=== PATIENT | male | born 1995 | race Caucasian/White ===

== ENCOUNTER 2017-06-22 08:57 | Emergency (ER) | payer OTHER ==
--- NOTE | 2017-06-22 08:59 | PDOC ---
History of Present Illness - General Chief Complaint: Injury Stated Complaint: LEFT WRIST INJURY Time Seen by Provider: 06/22/17 08:59 History Source: Patient Exam Limitations: No Limitations - History of Present Illness Timing/Duration: 1 hour Severity: mild Modifying Factors: improves with: cold therapy Associated Symptoms: denies: denies symptoms Past History - Travel Traveled outside of the country in the last 30 days: No Close contact w/someone who was outside of country & ill: No - Past Medical History Allergies/Adverse Reactions: Allergies Allergy/AdvReac Type Severity Reaction Status Date / Time Penicillins Allergy Intermediate Rash Verified 06/22/17 08:59 Home Medications: Ambulatory Orders Ibuprofen 800 mg PO TID #30 tablet 06/22/17 - Immunization History Immunization Up to Date: Yes - Psycho/Social/Smoking Cessation Hx Anxiety: No Suicidal Ideation: No Smoking Status: No Smoking History: Never smoked Have you smoked in the past 12 months: No Number of Cigarettes Smoked Daily: 0 Hx Alcohol Use: Yes (4 TIME A WEEK) Drug/Substance Use Hx: No Substance Use Type: Alcohol Review of Systems - Review of Systems Able to Perform ROS?: Yes Is the patient limited Serbian proficient: No Constitutional: No: Symptoms Reported HEENTM: No: Symptoms Reported, Dental Problems Cardiac (ROS): No: Symptoms Reported ABD/GI: No: Symptoms Reported : No: Symptoms Reported Musculoskeletal: Yes: See HPI Integumentary: No: Symptoms Reported Neurological: No: Symptoms reported Psychiatric: No: Anxiety, Depression Hematologic/Lymphatic: No: Symptoms Reported All Other Systems: Reviewed and Negative *Physical Exam - Physical Exam Comments: 06/22/17 09:36 Isolated injury, fell forward landed on outstretched hand, complained of pain to distal radius. No deformity or STS. No Crepetance, No abnormal Motion, No Ligamentous laxity, No Snuff Box tenderness and no pain with axial loading of the thumb. General Appearance: Yes: Nourished, Appropriately Dressed HEENT: positive: EOMI, BECKY, Normal ENT Inspection, Normal Voice Neck: positive: Tender, Trachea midline, Normal Thyroid Respiratory/Chest: positive: Chest Tender, Lungs Clear, Normal Breath Sounds Cardiovascular: positive: Regular Rhythm, Regular Rate, S1, S2 Gastrointestinal/Abdominal: positive: Normal Bowel Sounds, Flat, Soft Extremity: positive: Normal Capillary Refill, Normal Inspection, Normal Range of Motion, Other (See Above). negative: Swelling Neurologic: positive: Other (limb neurovascularly intact) *DC/Admit/Observation/Transfer Diagnosis at time of Disposition: Sprain and strain Contusion Qualifiers: Encounter type: initial encounter Contusion area: wrist - Discharge Dispostion Disposition: HOME Condition at time of disposition: Improved Admit: No - Prescriptions Prescriptions: Ibuprofen 800 mg PO TID #30 tablet - Referrals Referrals: Bossman Boyce MD [Staff Physician] - - Patient Instructions Printed Discharge Instructions: DI for Contusion, DI for Wrist Sprain Additional Instructions: Use the wrap and sling for comfort. Motrin three times a day with food. Ice for the first 48 hour on and off for comfort and to prevent swelling. Follow up with Orthopedics and return to us if any problems - Post Discharge Activity Work/School Note: Back to Work
[2017-06-22 09:15] VITALS: BP 125/81; PULSE 82; TEMP 98.9; BMI 23.7
[2017-06-22] MEDS ORDERED: IBUPROFEN 400 MG TABLET (FP) PO ONE ×2 (09:32→09:35)
--- NOTE | 2017-06-22 09:52 | PDOC ---
History of Present Illness - General Chief Complaint: Injury Stated Complaint: LEFT WRIST INJURY Time Seen by Provider: 06/22/17 08:59 Past History - Past Medical History Allergies/Adverse Reactions: Allergies Allergy/AdvReac Type Severity Reaction Status Date / Time Penicillins Allergy Intermediate Rash Verified 06/22/17 08:59 Other medical history: DENIES - Immunization History Immunization Up to Date: Yes - Psycho/Social/Smoking Cessation Hx Anxiety: No Suicidal Ideation: No Smoking Status: No Smoking History: Never smoked Have you smoked in the past 12 months: No Number of Cigarettes Smoked Daily: 0 Information on smoking cessation initiated: No Hx Alcohol Use: Yes (4 TIME A WEEK) Drug/Substance Use Hx: No Substance Use Type: Alcohol Review of Systems - Review of Systems Is the patient limited Persian proficient: No *Physical Exam - Vital Signs Last Vital Signs Temp Pulse Resp BP Pulse Ox 98.9 F 82 16 125/81 100 06/22/17 08:58 06/22/17 08:58 06/22/17 08:58 06/22/17 08:58 06/22/17 08:58 ED Treatment Course - Medications Given in the ED: ED Medications Discontinued Medications Generic Name Dose Route Start Last Admin Trade Name Freq PRN Reason Stop Dose Admin Ibuprofen 800 mg 06/22/17 09:32 06/22/17 09:36 Motrin - PO 06/22/17 09:33 800 mg ONCE ONE Administration *DC/Admit/Observation/Transfer - Discharge Dispostion Condition at time of disposition: Stable - Post Discharge Activity Work/School Note: Back to Work
== END 2017-06-22 10:13 | disposition home or self-care (01) ==
LOC: FER 08:57
DX: S63.502A Unspecified sprain of left wrist, initial encounter (principal); S66.912A Strain of unspecified muscle, fascia and tendon at wrist and hand level, left hand, initial encounter; W18.39XA Other fall on same level, initial encounter; Y93.89 Activity, other specified; Y92.9 Unspecified place or not applicable
CPT/HCPCS: 73110-TC-LT; 73130-TC-LT; 99283-25

== ENCOUNTER 2018-09-28 21:48 | Emergency (ER) | payer BC, OTHER ==
[2018-09-28 21:57] VITALS: BP 130/80; PULSE 94; BMI 25.1
[2018-09-28] MEDS ORDERED: IBUPROFEN 600 MG TABLET (FP) PO ONE ×2 (22:17→22:18)
--- NOTE | 2018-09-28 22:17 | PDOC ---
History of Present Illness - General History Source: Patient Exam Limitations: No Limitations - History of Present Illness Initial Comments: 09/28/18 22:34 The patient is a 23 year old here today for evaluation of a fever. The patient reports that he has had a fever of 104 for the past two days. He notes associated painful cough productive of yellow sputum, chest and low back pain, and headache. He reports being in contact with people who had bronchitis. PAST MEDICAL HISTORY: no significant history PAST SURGICAL HISTORY: no significant history FAMILY HISTORY: no pertinent history SOCIAL HISTORY: Pt lives with family and is employed. MEDICATIONS: reviewed ALLERGIES: As per nursing notes General: +Fever. No chills, no weakness, no weight loss HEENT: +Headache. No change in vision. No sore throat,. No ear pain CardioVascular: +Chest pain. No shortness of breath Respiratory: +Cough. No wheezing. Gastrointestinal: no nausea, vomiting, diarrhea or constipation, No rectal bleeding Genitourinary: No dysuria, hematuria, or frequency Musculoskeletal: +Lower back pain. Neurologic: No headache, vertigo, dizziness or loss of consciousness Psychiatric: nor depression Skin: No rashes or easy bruising Endocrine: no increased thirst or abnormal weight change Allergic: no skin or latex allergy All other systems reviewed and normal General: +Appeared uncomfortable. Well-nourished well-developed individual HEENT: Throat: +Mild erythema posterior oropharynx no lymphadenopathy Neck: Supple, no meningeal signs, no lymphadenopathy Eyes::Pupils equal reactive and round, extraocular motion intact Chest: Nontender to palpation Cardiac: S1-S2 normal, regular rate and rhythm, no murmurs rubs or gallops Respiratory: Lungs clear to auscultation bilateral Abdomen: Soft, nondistended, normal bowel sounds, nontender to palpation diffusely Extremities: Warm, dry, no cyanosis, clubbing, or edema Skin: No rashes Neuro: Alert and oriented x3, nonfocal exam, grossly intact, normal gait Psych: Normal mood and affect <MemoAnkur green - Last Filed: 09/28/18 22:34> - General History Source: Patient Exam Limitations: No Limitations - History of Present Illness Initial Comments: A portion of this note was documented by scribe services under my direction. I have reviewed the details of the note, within reason, and agree with the documentation with the following case summary and management plan written by me. Patient treated in the ED. Nursing notes are reviewed and incorporated into the medical decision-making. Vital signs reviewed. Assessment and plan: This is a 23-year-old male who comes in complaining of fever, body aches, headaches. Cough with yellow phlegm and congestion Patient did not get his flu shot. Workup initiated including influenza screen and chest x-ray. 09/28/18 23:43 X-ray probable retrocardiac infiltrate Patient started on Zithromax and will follow up with his primary care doctor first dose given in the ED <Lila Benitez I - Last Filed: 09/28/18 23:46> - General Chief Complaint: Cold Symptoms Stated Complaint: FEVER/HEADACHE Time Seen by Provider: 09/28/18 21:51 Past History <Ankur Hampton - Last Filed: 09/28/18 22:34> - Past Medical History COPD: No - Immunization History Immunization Up to Date: Yes - Suicide/Smoking/Psychosocial Hx Smoking Status: No Smoking History: Never smoked Have you smoked in the past 12 months: No Number of Cigarettes Smoked Daily: 0 Hx Alcohol Use: Yes (4 TIME A WEEK) Drug/Substance Use Hx: No Substance Use Type: Alcohol <Lila Benitez I - Last Filed: 09/28/18 23:46> - Past Medical History Allergies/Adverse Reactions: Allergies Allergy/AdvReac Type Severity Reaction Status Date / Time Penicillins Allergy Intermediate Rash Verified 06/22/17 08:59 Home Medications: Ambulatory Orders Azithromycin 250 mg PO DAILY #4 tablet 09/28/18 *Physical Exam - Vital Signs Last Vital Signs Temp Pulse Resp BP Pulse Ox 102.9 F H 94 H 18 130/80 99 09/28/18 21:51 09/28/18 21:51 09/28/18 21:51 09/28/18 21:51 09/28/18 21:51 <Ankur Hampton - Last Filed: 09/28/18 22:34> - Vital Signs Last Vital Signs Temp Pulse Resp BP Pulse Ox 102.9 F H 94 H 18 130/80 99 09/28/18 21:51 09/28/18 21:51 09/28/18 21:51 09/28/18 21:51 09/28/18 21:51 <Lila Benitez I - Last Filed: 09/28/18 23:46> Moderate Sedation - Procedure Monitoring Vital Signs: Procedure Monitoring Vital Signs Temperature 102.9 F H 09/28/18 21:51 Pulse Rate 94 H 09/28/18 21:51 Respiratory Rate 18 09/28/18 21:51 Blood Pressure 130/80 09/28/18 21:51 O2 Sat by Pulse Oximetry (%) 99 09/28/18 21:51 <Ankur Hampton - Last Filed: 09/28/18 22:34> - Procedure Monitoring Vital Signs: Procedure Monitoring Vital Signs Temperature 102.9 F H 09/28/18 21:51 Pulse Rate 94 H 09/28/18 21:51 Respiratory Rate 18 09/28/18 21:51 Blood Pressure 130/80 09/28/18 21:51 O2 Sat by Pulse Oximetry (%) 99 09/28/18 21:51 <Lila Benitez I - Last Filed: 09/28/18 23:46> ED Treatment Course - Medications Given in the ED: ED Medications Discontinued Medications Generic Name Dose Route Start Last Admin Trade Name Freq PRN Reason Stop Dose Admin Ibuprofen 600 mg 09/28/18 22:17 09/28/18 22:19 Motrin - PO 09/28/18 22:18 600 mg ONCE ONE Administration <Ankur Hampton - Last Filed: 09/28/18 22:34> *DC/Admit/Observation/Transfer - Attestations Scribe Attestion: 09/28/18 22:35 Documentation prepared by EVE Howell, acting as hospitalist medical director for Lila Benitez MD. <Ankur Hampton - Last Filed: 09/28/18 22:34> - Discharge Dispostion Decision to Admit order: No <iLla Benitez I - Last Filed: 09/28/18 23:46> Diagnosis at time of Disposition: Pneumonia Qualifiers: Pneumonia type: due to unspecified organism Laterality: left Lung location: lower lobe of lung Qualified Code(s): J18.1 - Lobar pneumonia, unspecified organism - Discharge Dispostion Disposition: HOME Condition at time of disposition: Stable - Prescriptions Prescriptions: Azithromycin 250 mg PO DAILY #4 tablet - Referrals Referrals: Juan Spring [Primary Care Provider] - - Patient Instructions Additional Instructions: Get the prescription filled for the azithromycin and take one tablet a day for the next 4 days. Your given a first dose here in the emergency department so need to take her next dose tomorrow evening. For the fevers alternate Tylenol with Motrin every 3-4 hours as needed. Return to the emergency department immediately with ANY new, persistent or worsening symptoms. Continue any medications as previously prescribed by your physician. You should follow up with your primary doctor as soon as possible regarding today's emergency department visit. . Please make sure your doctor reviews the results of your emergency evaluation. Thank you for coming to the Emergency Department today for your care. It was a pleasure to see you today. Please note that your evaluation is INCOMPLETE until you follow-up with your doctor. - Post Discharge Activity
[2018-09-28 23:41] VITALS: TEMP 100.7
[2018-09-28] MEDS ORDERED: AZITHROMYCIN 500 MG TABLET PO ONE (23:42)
[2018-09-28] MEDS ORDERED: AZITHROMYCIN 500 MG TABLET ONE (23:50)
== END 2018-09-28 23:52 | disposition home or self-care (01) ==
LOC: FER 21:48
DX: J18.1 Lobar pneumonia, unspecified organism (principal)
CPT/HCPCS: 71046-TC-FY; 87804; 99281-25

== ENCOUNTER 2019-05-26 20:39 | Emergency (ER) | payer BC, OTHER ==
[2019-05-26 20:53] VITALS: BMI 25.7
[2019-05-26] MEDS ORDERED: SODIUM CHLORIDE 1,000 ML IV ONE (21:15)
[2019-05-26] MEDS ORDERED: KETOROLAC TROMETHAMINE 30 MG/1 ML VIAL IVPUSH ONE (21:15)
[2019-05-26] MEDS ORDERED: KETOROLAC TROMETHAMINE 30 MG/1 ML VIAL ONE (21:33)
--- NOTE | 2019-05-26 21:34 | PDOC ---
Documentation entered by Kandi Vaughn SCRIBE, acting as scribe for Lila Benitez MD. Lila Benitez MD: This documentation has been prepared by the Roderick esteban Andrys, SCRIBE, under my direction and personally reviewed by me in its entirety. I confirm that the documentation accurately reflects all work, treatment, procedures, and medical decision making performed by me. History of Present Illness - General Chief Complaint: Pain Stated Complaint: HEADACHE, FEVER AT HOME, SORE THROAT Time Seen by Provider: 05/26/19 20:49 History Source: Patient Exam Limitations: No Limitations - History of Present Illness Initial Comments: 05/26/19 21:14 The patient is a 24 year old male with no significant past medical history who presents to the ED with several days of headache and fever. Patient states he recently traveled to [place] and was outdoors a lot. He reports a sharp heachache and subjective fever that started 3 days ago. He developed a sore throat and body aches 2 days ago. Patient reports pain to the back of his neck with radiation to his head and back pain. He took tylenol with no relief of symptoms. Denies rashes. Denies nausea or vomiting. Denies cough or congestion. PAST MEDICAL HISTORY: no significant history PAST SURGICAL HISTORY: no significant history FAMILY HISTORY: no pertinent history SOCIAL HISTORY: Pt lives with family and is employed. MEDICATIONS: reviewed ALLERGIES: As per nursing notes General: + fever, body aches. No weakness, no weight loss HEENT: + sore throat. No change in vision. No ear pain Cardiovascular: No chest pain or shortness of breath Respiratory:No cough, or wheezing. Gastrointestinal: no nausea, vomiting, diarrhea or constipation, No rectal bleeding Genitourinary: No dysuria, hematuria, or frequency Musculoskeletal: + neck pain. No joint or muscle swelling Neurologic: + headache. No vertigo, dizziness or loss of consciousness Psychiatric: nor depression Skin: No rashes or easy bruising Endocrine: no increased thirst or abnormal weight change Allergic: no skin or latex allergy All other systems reviewed and normal General: + mild distress. Well-nourished well-developed individual. HEENT: Throat: Normal, tonsils normal, no erythema or exudate Neck: Supple, no meningeal signs, no lymphadenopathy Eyes::Pupils equal reactive and round, extraocular motion intact Chest: Nontender to palpation Cardiac: S1-S2 normal, regular rate and rhythm, no murmurs rubs or gallops Respiratory: Lungs clear to auscultation bilateral Abdomen: Soft, nondistended, normal bowel sounds, nontender to palpation diffusely Extremities: Warm, dry, no cyanosis, clubbing, or edema Skin: No rashes Neuro: Alert and oriented x3, nonfocal exam, grossly intact, normal gait Psych: Normal mood and affect 05/26/19 21:33 Assessment and plan: This is a 24-year-old male who comes in complaining of 3 days of fever bodyaches headache. Patient recently returned from [place] where he spent a lot of time outdoors he said. Patient was unaware of any tick bites. Patient on my exam had no meningeal signs but did appear uncomfortable. Patient given IV fluids, Toradol. Workup initiated to rule out tickborne illnesses including leukemia, babesiosis , Lyme and general labs were sent including CBC, comp and blood cultures. 05/26/19 22:33 Patient's workup was unremarkable with the exception of a monocytosis on his CBC. A mono screen was sent to rule out infectious mono Patient feels better after Toradol IV fluids. We'll start patient on doxycycline for presumptive tickborne illness as he has risk factors and symptoms consistent with a tickborne illness. Patient given first dose of doxycycline here. Patient told to follow-up with his primary care doctor who can follow-up the results of his test for babesiosis and ehrlichiosis as well as Lyme Past History - Past Medical History Allergies/Adverse Reactions: Allergies Allergy/AdvReac Type Severity Reaction Status Date / Time No Known Allergies Allergy Verified 05/26/19 20:45 Home Medications: Ambulatory Orders Acetaminophen [Tylenol -] 650 mg PO ONCE 05/26/19 Doxycycline Hyclate 100 mg PO BID #20 tablet 05/26/19 COPD: No - Immunization History Immunization Up to Date: Yes - Suicide/Smoking/Psychosocial Hx Smoking Status: No Smoking History: Current some day smoker Have you smoked in the past 12 months: Yes Number of Cigarettes Smoked Daily: 0 Information on smoking cessation initiated: Yes Hx Alcohol Use: (social) Drug/Substance Use Hx: No Substance Use Type: Alcohol *Physical Exam - Vital Signs Last Vital Signs Temp Pulse Resp BP Pulse Ox 100 F H 95 H 18 120/73 100 05/26/19 20:39 05/26/19 20:39 05/26/19 20:39 05/26/19 20:39 05/26/19 20:39 ED Treatment Course - LABORATORY CBC & Chemistry Diagram: 05/26/19 21:30 05/26/19 21:30 *DC/Admit/Observation/Transfer Diagnosis at time of Disposition: Fever Qualifiers: Fever type: unspecified Qualified Code(s): R50.9 - Fever, unspecified - Discharge Dispostion Disposition: HOME Condition at time of disposition: Stable Decision to Admit order: No - Prescriptions Prescriptions: Doxycycline Hyclate 100 mg PO BID #20 tablet - Referrals - Patient Instructions Additional Instructions: Take doxycycline 1 tablet twice a day for 10 days/ For the fever or body aches and headaches alternate Tylenol 2 extra strength with ibuprofen 3 tablets every 4-6 hours as needed. Return to the emergency department immediately with ANY new, persistent or worsening symptoms. Continue any medications as previously prescribed by your physician. You should follow up with your primary doctor as soon as possible regarding today's emergency department visit. . Please make sure your doctor reviews the results of your emergency evaluation. Thank you for coming to the Emergency Department today for your care. It was a pleasure to see you today. Please note that your evaluation is INCOMPLETE until you follow-up with your doctor. - Post Discharge Activity
[2019-05-26 21:58] LABS: BASO % 0.1 % (0-2.0); EOS % 0.6 % (0-4.5); HEMATOCRIT 41.2 % (35.4-49); HEMOGLOBIN 13.9 GM/dl (11.7-16.9); LYMPH % 11.7 % (8-40); MCH 30.6 pg (25.7-33.7); MCHC 33.8 g/dl (32.0-35.9); MEAN CELL VOLUME 90.5 fl (80-96); MEAN PLT VOLUME 10.4 fl (7.5-11.1); MONO % 15.6 % (3.8-10.2); PLATELET COUNT 146 K/MM3 (134-434); RBC 4.55 M/mm3 (4.00-5.60); RDW 12.7 % (11.9-15.9); WHITE BLOOD COUNT 4.6 K/mm3 (4.0-10.8)
[2019-05-26 22:13] LABS: ALBUMIN 4.3 g/dl (3.4-5.0); BILIRUBIN,TOTAL 1.2 mg/dl (0.2-1); CALCIUM 9.4 mg/dl (8.5-10)
[2019-05-26] MEDS ORDERED: DOXYCYCLINE HYCLATE 100 MG CAPSULE PO ONE ×2 (22:30→22:40)
[2019-05-26 23:02] VITALS: BP 112/70; PULSE 81; TEMP 98.8
[2019-05-29 14:18] LABS: E.chaff HME IgG Negative (Neg:<1:64)
[2019-05-29 16:23] LABS: BABESIA MICROTI ANTIBODY IGG <1:10 (Neg:<1:10); BABESIA MICROTI ANTIBODY IGM <1:10 (Neg:<1:10)
== END 2019-05-26 23:07 | disposition home or self-care (01) ==
LOC: FER 20:39
PROC: 3E0333Z Introduction of Anti-inflammatory into Peripheral Vein, Percutaneous Approach (ICD-10-PCS; principal; 2019-05-26)
PROC: 3E0337Z Introduction of Electrolytic and Water Balance Substance into Peripheral Vein, Percutaneous Approach (ICD-10-PCS; 2019-05-26)
DX: F17.210 Nicotine dependence, cigarettes, uncomplicated (principal)
CPT/HCPCS: 36415; 80053; 85025; 86308; 86618; 86666; 86753; 87040; 99284-25; J7030

== ENCOUNTER 2019-05-27 13:31 | Emergency (ER) | payer BC, OTHER ==
--- NOTE | 2019-05-27 13:41 | PDOC ---
Rapid Medical Evaluation Medical Evaluation: Allergies Allergy/AdvReac Type Severity Reaction Status Date / Time No Known Allergies Allergy Verified 05/26/19 20:45 I have performed a brief in-person evaluation of this patient. The patient presents with a chief complaint of: c/o fever, headache, sore throat , body aches since 4 days ago; Tmax 103; was seen at [facility] yesterday and had labs/blood cultures done; was started on doxy for possible lyme's; denies recent travel; returns today as states [place] getting worse; has hx of meningitis; took Tylenol 2 hrs ago Pertinent physical exam findings: In NAD; throat clear, no neck stiffness noted I have ordered the following: Motrin Of note, patient states Ozzie is aware and may come in to see patient The patient will proceed to the ED for further evaluation. 05/27/19 13:39
[2019-05-27] MEDS ORDERED: IBUPROFEN 600 MG TABLET (FP) PO ONE ×3 (13:43→14:17)
[2019-05-27 13:44] VITALS: BP 136/50; PULSE 94; TEMP 99.5; BMI 25.7
[2019-05-27] MEDS ORDERED: DEXAMETHASONE LIQUID 0.5 MG/5 ML 240 ML BULK BOTTLE PO ONE (16:44)
[2019-05-27] MEDS ORDERED: ACETAMINOPHEN 500 MG TABLET (FP) PO ONE (16:44)
[2019-05-27] MEDS ORDERED: AMOXICILLIN 500 MG CAPSULE (FP) PO ONE (16:45)
[2019-05-27] MEDS ORDERED: AMOXICILLIN 500 MG CAPSULE (FP) ONE (16:52)
[2019-05-27] MEDS ORDERED: ACETAMINOPHEN 325 MG TABLET (FP) ONE (16:52)
[2019-05-27] MEDS ORDERED: DEXAMETHASONE SOD PHOSPHATE 10 MG/1 ML VIAL ONE (16:52)
--- NOTE | 2019-05-27 17:39 | PDOC ---
History of Present Illness - General Chief Complaint: Respiratory Stated Complaint: Cold Symptoms Time Seen by Provider: 05/27/19 13:38 History Source: Patient Exam Limitations: No Limitations - History of Present Illness Initial Comments: 05/27/19 17:05 24 y/o male with no past medical history presents to ED with 3 days of frontal throbbing headache, fever, chills, myalgia and sore throat. Patient states was seen at [facility] emergency department. Patient was tested for Lyme, mono and given doxycycline secondary to recent discharged from the [employer] 3 weeks ago. Patient denies seeing an insect bite/insect but states the frontal headache and chills or continuing despite taking doxycycline for the past day. Patient states took no Motrin or Tylenol for headache. Timing/Duration: constant Severity: moderate Associated Symptoms: reports: fever/chills, headaches, other (sore throat) Past History - Travel Traveled outside of the country in the last 30 days: No Close contact w/someone who was outside of country & ill: No - Past Medical History Allergies/Adverse Reactions: Allergies Allergy/AdvReac Type Severity Reaction Status Date / Time No Known Allergies Allergy Verified 05/27/19 13:40 Home Medications: Ambulatory Orders Acetaminophen [Tylenol -] 650 mg PO ONCE 05/26/19 Doxycycline Hyclate 100 mg PO BID #20 tablet 05/26/19 Amoxicillin - [Amoxicillin 500mg Capsule -] 500 mg PO BID #19 capsule 05/27/19 Ibuprofen [Motrin -] 600 mg PO TID PRN #21 tablet 05/27/19 COPD: No - Immunization History Immunization Up to Date: Yes - Suicide/Smoking/Psychosocial Hx Smoking Status: No Smoking History: Never smoked Have you smoked in the past 12 months: Yes Number of Cigarettes Smoked Daily: 0 Hx Alcohol Use: No Drug/Substance Use Hx: No Substance Use Type: Alcohol Patient Lives Alone: No Lives with/in: parents Review of Systems - Review of Systems Able to Perform ROS?: Yes Constitutional: Yes: Chills, Fever HEENTM: Yes: Throat Pain, Difficulty Swallowing Respiratory: No: Symptoms reported Cardiac (ROS): No: Symptoms Reported ABD/GI: No: Symptoms Reported : No: Symptoms Reported Musculoskeletal: Yes: Joint Pain, Muscle Pain Integumentary: No: Symptoms Reported Neurological: Yes: Headache Endocrine: No: Symptoms Reported Hematologic/Lymphatic: No: Symptoms Reported *Physical Exam - Vital Signs Last Vital Signs Temp Pulse Resp BP Pulse Ox 99.5 F 94 H 16 136/50 L 99 05/27/19 13:35 05/27/19 13:35 05/27/19 13:35 05/27/19 13:35 05/27/19 13:35 - Physical Exam General Appearance: Yes: Nourished, Appropriately Dressed. No: Apparent Distress HEENT: positive: Tonsillar Erythema (with exudate to left 2+ tonsil). negative : Pale Conjunctivae Neck: positive: Normal Thyroid. negative: Lymphadenopathy (R), Lymphadenopathy (L) Respiratory/Chest: positive: Lungs Clear, Normal Breath Sounds. negative: Respiratory Distress, Accessory Muscle Use Cardiovascular: positive: Regular Rhythm, Regular Rate. negative: Murmur Gastrointestinal/Abdominal: negative: Soft, Tenderness Integumentary: positive: Normal Color, Warm, Moist Neurologic: positive: Motor Strength 5/5 (ambulatory) ED Treatment Course - Medications Given in the ED: ED Medications Discontinued Medications Generic Name Dose Route Start Last Admin Trade Name Timbo PRN Reason Stop Dose Admin Acetaminophen 975 mg 05/27/19 16:44 05/27/19 16:57 Tylenol - PO 05/27/19 16:45 975 mg ONCE ONE Administration Amoxicillin 500 mg 05/27/19 16:45 05/27/19 16:57 Amoxicillin - PO 05/27/19 16:46 500 mg ONCE ONE Administration Dexamethasone 10 mg 05/27/19 16:44 05/27/19 16:56 Decadron Liquid - PO 05/27/19 16:45 10 mg ONCE ONE Administration Ibuprofen 600 mg 05/27/19 13:43 05/27/19 14:35 Motrin - PO 05/27/19 13:44 600 mg ONCE ONE Administration Medical Decision Making - Medical Decision Making 05/27/19 17:00 Frontal throbbing headache along with sore throat and chills/myalgia patient has been placed on doxycycline since yesterday while his titers are pending due to his line of work presently with [employer] along with recent discharge from the [employer] 3 weeks ago exam: low grade temp of 99.5 orally noted exudate and erythema to the left 2+ tonsil plan: Tylenol, Decadron and amoxicillin started along with rapid strep. if negative will treat for tonsillitis based on clinical presentation and complaints 05/27/19 17:43 Laboratory Tests 05/27/19 16:45 Group A Strep Rapid Negative 05/27/19 17:49 Pt states mod resolution of headache and sore throat. pt will be prescribed amoxicillin and Motrin. pt also told to call the ED tomorrow for update *DC/Admit/Observation/Transfer Diagnosis at time of Disposition: Tonsillitis - Discharge Dispostion Disposition: HOME Condition at time of disposition: Improved - Prescriptions Prescriptions: Amoxicillin - [Amoxicillin 500mg Capsule -] 500 mg PO BID #19 capsule Ibuprofen [Motrin -] 600 mg PO TID PRN #21 tablet PRN Reason: Pain - Referrals - Patient Instructions Printed Discharge Instructions: DI for Pharyngitis/Tonsillopharyngitis -- Adult Additional Instructions: Please take Amoxicillin for tonsillitis. Please take Motrin for headache. Drink electrolyte based fluids and call me tomorrow at [phone]. - Post Discharge Activity Forms/Work/School Notes: Back to Work
== END 2019-05-27 17:55 | disposition home or self-care (01) ==
LOC: JER 13:31
DX: J03.90 Acute tonsillitis, unspecified (principal)
CPT/HCPCS: 87070; 87077; 87880; 99281-25

== ENCOUNTER 2020-09-22 05:59 | Emergency (ER) | payer BC ==
[2020-09-22 06:06] VITALS: BP 141/96; PULSE 79; TEMP 98; BMI 25.7
[2020-09-22] MEDS ORDERED: KETOROLAC TROMETHAMINE 60 MG/2 ML VIAL IM ONE (06:16)
[2020-09-22] MEDS ORDERED: AMOXICILLIN 500 MG CAPSULE (FP) PO ONE (06:16)
[2020-09-22] MEDS ORDERED: AMOXICILLIN 250 MG CAPSULE ONE (06:16)
[2020-09-22] MEDS ORDERED: KETOROLAC TROMETHAMINE 60 MG/2 ML VIAL ONE (06:17)
== END 2020-09-22 06:27 | disposition home or self-care (01) ==
LOC: FER 05:59
PROC: 3E0233Z Introduction of Anti-inflammatory into Muscle, Percutaneous Approach (ICD-10-PCS; principal; 2020-09-22)
DX: K01.1 Impacted teeth (principal)
CPT/HCPCS: 99284-25

== ENCOUNTER 2023-01-20 11:00 | Emergency (ER) | payer BC, OTHER ==
[2023-01-20 11:14] VITALS: BP 127/84; PULSE 84; RESP 15; TEMP 98; BMI 25.8
[2023-01-20] MEDS ORDERED: NAPROXEN 500 MG TABLET PO ONE (11:23)
[2023-01-20] MEDS ORDERED: NAPROXEN 500 MG TABLET ONE (11:38)
== END 2023-01-20 11:45 | disposition home or self-care (01) ==
LOC: FER 11:00
DX: K64.9 Unspecified hemorrhoids (principal)
CPT/HCPCS: 99283-25

== ENCOUNTER 2023-04-10 18:14 | Emergency (ER) | payer BC ==
[2023-04-10 18:23] VITALS: BP 125/87; PULSE 84; RESP 20; TEMP 98.2; BMI 23.6
[2023-04-10] MEDS ORDERED: DEXAMETHASONE SOD PHOSPHATE 10 MG/1 ML VIAL PO ONE (18:26)
[2023-04-10] MEDS ORDERED: DEXAMETHASONE SOD PHOSPHATE/PF 10 MG/ML SDV ONE (18:29)
== END 2023-04-10 18:35 | disposition home or self-care (01) ==
LOC: FER 18:14
PROC: 3E033GC Introduction of Other Therapeutic Substance into Peripheral Vein, Percutaneous Approach (ICD-10-PCS; principal; 2023-04-10)
DX: R07.0 Pain in throat (principal); R13.10 Dysphagia, unspecified; J02.0 Streptococcal pharyngitis
CPT/HCPCS: 99284-25; J1100

== ENCOUNTER 2023-05-15 16:49 | Emergency (ER) | payer BC ==
[2023-05-15 17:01] VITALS: BP 128/80; PULSE 80; RESP 20; TEMP 98.2; BMI 25.8
[2023-05-15] MEDS ORDERED: DEXAMETHASONE SOD PHOSPHATE 10 MG/1 ML VIAL IVPUSH ONE (17:18)
[2023-05-15] MEDS ORDERED: PENICILLIN G BENZATHINE 1,200,000 UNIT/2 ML PFS IM ONE ×2 (17:23→17:40)
[2023-05-15] MEDS ORDERED: IBUPROFEN 600 MG TABLET (FP) PO ONE (17:23)
[2023-05-15] MEDS ORDERED: IBUPROFEN 400 MG TABLET (FP) PO ONE (17:39)
[2023-05-15] MEDS ORDERED: DEXAMETHASONE SOD PHOSPHATE/PF 10 MG/ML SDV ONE (17:39)
== END 2023-05-15 18:34 | disposition home or self-care (01) ==
LOC: FER 16:49
PROC: 3E033GC Introduction of Other Therapeutic Substance into Peripheral Vein, Percutaneous Approach (ICD-10-PCS; principal; 2023-05-15)
PROC: 3E02329 Introduction of Other Anti-infective into Muscle, Percutaneous Approach (ICD-10-PCS; 2023-05-15)
DX: R07.0 Pain in throat (principal); J02.0 Streptococcal pharyngitis
CPT/HCPCS: 87651; 99284-25; J1100

== ENCOUNTER 2024-05-11 00:30 | Emergency (ER) | payer BC ==
[2024-05-11 00:34] VITALS: BP 126/90; PULSE 70; RESP 18; TEMP 98.8; BMI 26.5
== END 2024-05-11 02:02 | disposition home or self-care (01) ==
LOC: FER 00:30
DX: R10.31 Right lower quadrant pain (principal); R10.32 Left lower quadrant pain
CPT/HCPCS: 76870-TC; 99284-25

== ENCOUNTER 2025-03-13 14:41 | Emergency (ER) | payer BC, OTHER ==
[2025-03-13 14:52] VITALS: BP 127/79; PULSE 65; RESP 16; TEMP 98.6; BMI 12.9
[2025-03-13] MEDS ORDERED: ACETAMINOPHEN 325 MG TABLET (FP) ONE (16:06)
[2025-03-13] MEDS ORDERED: DEXAMETHASONE SOD PHOSPHATE 10 MG/1 ML VIAL ONE (16:06)
[2025-03-13] MEDS: ACETAMINOPHEN 325 MG TABLET (FP) PO ONE (16:13)
[2025-03-13] MEDS: DEXAMETHASONE SOD PHOSPHATE 10 MG/1 ML VIAL PO ONE (16:13)
== END 2025-03-13 16:21 | disposition home or self-care (01) ==
LOC: FER 14:41
DX: J02.9 Acute pharyngitis, unspecified (principal); K12.30 Oral mucositis (ulcerative), unspecified
CPT/HCPCS: 87651; 99283-25; J1100